=== PATIENT | female | born 1980 | race Caucasian/White ===

== ENCOUNTER → 2016-04-13 | Outpatient (CLI) | payer BC ==
[~2016-04-13] MED LIST: ALPR1TAB2; AMIT25TA9; FLX20C PO; SMTR50T; TBR.3OP51 OS
[2016-04-13 15:20] VITALS: BP 120/78
--- NOTE | 2016-04-13 15:20 | Urgent Care T Sheet Gen (E) ---
Intake General Temperature (Fahrenheit): 98.0 Pulse: 82 Blood Pressure Systolic: 120 Blood Pressure Diastolic: 78 Respirations: 20 SPO2: 98 Description of Symptoms Patient presents with possible pink eye to the L eye. Started having symptoms yesterday morning. States the eye is gritty, draining and red. Matted shut this AM. Pain to the area. No cough or cold symptoms. No fever. no meds. History of Present Illness Allergies: Coded Allergies: No Known Drug Allergies (Unverified , 12/24/12) Home Meds Reported Medications Fluoxetine 20 Mg Neaxgqm95 Mg PO DAILY 11/15/15 Alprazolam (Xanax)1 Mg Tablet 12/24/12 Respiratory Constitutional Symptoms: No syptoms reported EENTM: Eye pain Eye tearing Respiratory: No symptoms reported Cardiovascular: No symptoms reported Gastrointestinal/Abdominal: No symptoms reported All Other Systems Reviewed Remaining Systems: All other systems reviewed with negative findings Past Qjiyqiw-Sqfjfl-Noqgkj Hx Patient's Social History Alcohol Use: Denies Use Smoking Status: Never smoker Surgeries/Hospitalizations Hospitalization/Surgery Hx: D n C, tonsillectomy Respiratory Respiratory History: None Cardiovascular Cardiovascular History: None Reproductive System Sexually Transmitted Diseases: No Gastrointestinal GI/Endocrine History: None Diabetes Diabetes: No HEENT Impaired Vision: None Hearing Impaired: None Psychosocial Behavior Disorders: Anxiety, Stress Physical Exam Physical Exam General Appearance: WD/WN No apparent distress Eyes, Ears, Nose, Throat Ex: PERRL/EOMI (L conjunctiva is slightly red with minimal mattering to the eyelashes.) TMs normal Pharynx normal Other (nose is clear) Neck Exam: SuppleNo Lymphadenopathy Respiratory Exam: Lungs clear Normal breath sounds Cardiovascular Exam: Regular rate, rhythm Departure Urgent Care Impression Impression: Primary Impression: Conjunctivitis Qualified Code: H10.32 - Unspecified acute conjunctivitis, left eye Departure Disposition: HOME OR SELF-CARE Condition: Stable Referrals: URBAN SUERO MD (PCP) Additional Instructions: I have started the patient on Tobramycin ophth drops x 7 days Warm compress to the eye Return if no better Patient understands DC instructions. All questions were answered. Scripts Tobramycin Sulf (Tobrex 0.3% Ophthalmic Solution)5 Ml Soln2 Drops OS QID #1 BTL Instil 2 drops in L eye QID x 7 days Prov:VIOLETA STILES 04/13/16 End of report . VIOLETA STILES Apr 13, 2016 15:20
== END ==
LOC: MHUC 14:25
PROVIDERS: ATTEND Physician Assistant
DX: H10.32 Unspecified acute conjunctivitis, left eye (principal)
CPT/HCPCS: 99213

== ENCOUNTER 2016-07-24 15:34 | Emergency (ER) | payer BC ==
[~2016-07-24] VITALS: Ht 152.4 cm; Wt 51.5 kg
[2016-07-24] MEDS ORDERED: PROMETHAZINE 25 MG/ML (PHENERGAN) 1 ML VIAL IM ONE (16:05)
[2016-07-24] MEDS ORDERED: HYDROmorphone 2 MG/ML (DILAUDID) 1 ML SYRINGE IM ONE (16:05)
[2016-07-24] MEDS ORDERED: KETOROLAC 60 MG/2 ML (TORADOL) VIAL IM ONE (16:05)
[2016-07-24] MEDS ORDERED: ABCT PO (16:12)
[2016-07-24] MEDS ORDERED: ZLP5T PO (16:12)
[2016-07-24] MEDS ORDERED: LORA2TAB (16:12)
--- NOTE | 2016-07-24 16:54 | NUR ---
pt calls to desk to let this rn know she is itching on the front of her neck, chest & abd. DENIES ANY SOA, SWELLING OR TIGHTNESS OR ITCHING OF LIPS OR THROAT. DR BAUMAN NOTIFIED. NO HIVES NOTED AT THIS TIME BUT PT IS RED IN THESE AREAS. PT STATES SHE SOMETIMES GETS HIVES BUT HAS HAD THESE MEDS BEFORE. CL
--- NOTE | 2016-07-24 16:55 | NUR ---
ICE PK TO CHEST/NECK FOR ITCHING. CL
[2016-07-24 18:00] VITALS: BP 120/62
== END 2016-07-24 17:23 | disposition home or self-care (01) ==
LOC: ED 15:38
DX: G43.909 Migraine, unspecified, not intractable, without status migrainosus (principal)
CPT/HCPCS: 96372; 99283; J1170; J1885; J2550; 99282